=== PATIENT | male | born 1990 | race Caucasian/White ===

== ENCOUNTER 2020-01-11 15:23 | Emergency (ER) | payer OTHER, BC ==
[~2020-01-11] VITALS: Ht 175.3 cm; Wt 99.8 kg
[~2020-01-11 15:23] MED LIST: ACET500 PO; ALBIPROI INH; ALBU90OI INH; AZIT250 PO; CEPH500 PO; CLIN300 PO; CODGUAEL PO; CYCL10; CYCL10 PO; DAYQUIL; DIAZ10; DOXY100 PO; HYDACE5 PO; HYDACE5325 PO; HYDGUAL120 PO; HYDMOR2 PO; HYDR1TAB94 PO; IBUP800 PO; NAPR500 PO; NYQUIL; Norco 5-325 Ta1 EACH PO; OXYACE5T PO; PRED20 PO; PROM25 PO; PSEU120ER PO; Percocet 5-3251 EACH PO; Prednisone20 MG PO; SULTRIDS PO; SUMA25 PO; Zofran4 MG PO; Zofran8 MG PO
[2020-01-11 15:58] LABS: PCO2 Arterial 39.8 mmHg (35-45); pH Blood Arterial 7.42 (7.35-7.45)
[2020-01-11 16:18] LABS: BASOPHILS ABSOLUTE AUTO 0.02 K/mm3 (0.00-0.23); BASOPHILS PERCENT AUTO 0 % (0-2); EOSINOPHILS ABSOLUTE AUTO 0.04 K/mm3 (0.00-0.68); EOSINOPHILS PERCENT AUTO 1 % (0-6); Hematocrit 50.4 % (37.0-53.0); Hemoglobin 16.9 g/dL (13.5-17.5); IMMATURE GRAN ABSOLUTE AUTO 0.04 K/mm3 (0.00-0.10); IMMATURE GRAN PERCENT AUTO 1 % (0-1); LYMPHOCYTES ABSOLUTE AUTO 2.25 K/mm3 (0.84-5.20); LYMPHOCYTES PERCENT AUTO 28 % (21-46); MONOCYTES PERCENT AUTO 8 % (4-13); Mean Corpuscular HGB 29.8 pg (26.0-34.0); Mean Corpuscular HGB Conc 33.5 g/dL (31.5-36.5); Mean Corpuscular Volume 89 fL (80-100); Mean Platelet Volume 10.6 fL (9.1-12.4); NEUTROPHILS ABSOLUTE AUTO 5.09 K/mm3 (1.96-9.15); NEUTROPHILS PERCENT AUTO 63 % (41-73); Platelet Count 249 K/mm3 (150-400); RDW Coefficient Variation 12.4 % (11.7-14.2); RDW Standard Deviation 41.2 fL (35.1-46.3); Red Blood Cell Count 5.67 M/mm3 (4.30-5.90); White Blood Cell Count 8.04 K/mm3 (4.00-11.30)
[2020-01-11 16:38] LABS: Alanine Aminotransfer (ALT/SGP 67 U/L (12-78); Albumin, Blood 4.1 g/dL (3.4-5.0); Albumin/Globulin Ratio 1.1 (0.8-1.8); Alk Phos 62 U/L (50-136); Anion Gap 5 mmol/L (6-16); Aspartate Aminotrans (AST/SGOT 52 U/L (12-37); Bilirubin, Total 0.9 mg/dL (0.1-1.0); Blood Urea Nitrogen 18 mg/dL (8-24); Bun/Creatinine Ratio 21.5 (12.0-20.0); CO2, Blood 25 mmol/L (21-32); Calcium, Blood 8.8 mg/dL (8.5-10.1); Chloride, Blood 105 mmol/L (98-108); Creatinine, Blood 0.84 mg/dL (0.60-1.20); Globulin, Blood 3.6 g/dL (2.2-4.0); Glomerular Filtration Rate >60 (60-); Glucose, Blood 103 mg/dL (70-99); Potassium, Blood 4.1 mmol/L (3.5-5.5); Sodium, Blood 135 mmol/L (136-145); Total Protein, Blood 7.7 g/dL (6.4-8.2)
== END 2020-01-11 17:13 | disposition home or self-care (01) ==
LOC: ER 15:23
PROVIDERS: Physician Assistant
DX: T59.891A Toxic effect of other specified gases, fumes and vapors, accidental (unintentional), initial encounter (principal); Z88.0 Allergy status to penicillin; Z88.1 Allergy status to other antibiotic agents; Z87.891 Personal history of nicotine dependence
CPT/HCPCS: 36415; 36600; 80053; 82375; 82803; 85025; 99284; A9270-GY

== ENCOUNTER 2020-02-08 19:29 | Emergency (ER) | payer BC ==
[~2020-02-08] VITALS: Ht 175.3 cm; Wt 10.0 kg
== END 2020-02-08 23:55 | disposition home or self-care (01) ==
LOC: ER 19:29
DX: R10.31 Right lower quadrant pain (principal); Z88.0 Allergy status to penicillin; Z88.1 Allergy status to other antibiotic agents; Z87.891 Personal history of nicotine dependence
CPT/HCPCS: 36415; 74177; 96361; 96374-59; 96375; 99284-25; A9270; A9270-GY; J1200; J2405; J2930; J3010; J7030; Q9967

== ENCOUNTER 2021-02-05 15:39 | Emergency (ER) | payer OTHER, BC ==
[~2021-02-05] VITALS: Ht 177.8 cm; Wt 99.8 kg
[2021-02-05 16:03] LABS: BASOPHILS ABSOLUTE AUTO 0.03 K/mm3 (0.00-0.23); BASOPHILS PERCENT AUTO 0 % (0-2); EOSINOPHILS PERCENT AUTO 1 % (0-6); IMMATURE GRAN ABSOLUTE AUTO 0.04 K/mm3 (0.00-0.10); IMMATURE GRAN PERCENT AUTO 1 % (0-1); LYMPHOCYTES ABSOLUTE AUTO 3.09 K/mm3 (0.84-5.20); LYMPHOCYTES PERCENT AUTO 35 % (21-46); MONOCYTES ABSOLUTE AUTO 0.72 K/mm3 (0.16-1.47); MONOCYTES PERCENT AUTO 8 % (4-13); Mean Corpuscular HGB 30.5 pg (26.0-34.0); Mean Corpuscular HGB Conc 35.4 g/dL (31.5-36.5); Mean Corpuscular Volume 86 fL (80-100); Mean Platelet Volume 10.1 fL (9.1-12.4); NEUTROPHILS ABSOLUTE AUTO 4.88 K/mm3 (1.96-9.15); NEUTROPHILS PERCENT AUTO 55 % (41-73); Platelet Count 262 K/mm3 (150-400); RDW Coefficient Variation 12.8 % (11.7-14.2); RDW Standard Deviation 40.1 fL (35.1-46.3); Red Blood Cell Count 5.57 M/mm3 (4.30-5.90); White Blood Cell Count 8.86 K/mm3 (4.00-11.30)
[2021-02-05 16:17] LABS: Alanine Aminotransfer (ALT/SGP 62 U/L (12-78); Albumin, Blood 4.1 g/dL (3.4-5.0); Albumin/Globulin Ratio 1.1 (0.8-1.8); Alk Phos 65 U/L (50-136); Anion Gap 7 mmol/L (6-16); Aspartate Aminotrans (AST/SGOT 21 U/L (12-37); Bilirubin, Total 0.5 mg/dL (0.1-1.0); Blood Urea Nitrogen 19 mg/dL (8-24); Bun/Creatinine Ratio 18.3 (12.0-20.0); CO2, Blood 28 mmol/L (21-32); Chloride, Blood 103 mmol/L (98-108); Creatinine, Blood 1.04 mg/dL (0.60-1.20); Globulin, Blood 3.8 g/dL (2.2-4.0); Glomerular Filtration Rate >60 (60-); Glucose, Blood 112 mg/dL (70-99); Potassium, Blood 3.6 mmol/L (3.5-5.5); Sodium, Blood 138 mmol/L (136-145); Total Protein, Blood 7.9 g/dL (6.4-8.2)
[2021-02-05 16:33] LABS: Source, Urine Clean Catch
[2021-02-05 16:35] LABS: Appearance, Urine Clear (Clear); Bilirubin, Urine Neg (Neg); Blood, Urine Neg (Neg); Color, Urine Yellow (P-Yellow); Glucose Qualitative, Urine Neg (Neg); Ketones, Urine Neg (Neg); Leukocyte Esterase, Urine Neg (Neg); Nitrite, Urine Neg (Neg); Protein, Urine Neg (Neg); Specific Gravity, Urine 1.015 (1.003-1.022); Urobilinogen, Urine NORM (Normal)
== END 2021-02-05 19:23 | disposition home or self-care (01) ==
LOC: ER 15:39
PROVIDERS: Physician Assistant
DX: T67.5XXA Heat exhaustion, unspecified, initial encounter (principal); E86.0 Dehydration; Z88.0 Allergy status to penicillin; Z87.891 Personal history of nicotine dependence
CPT/HCPCS: 36415; 80053; 81003; 83690; 83735; 85025; 96374; 99284-25; A9270; J2405; J7030

== ENCOUNTER 2023-05-05 22:45 | Emergency (ER) | payer SELFPAY ==
[~2023-05-05] VITALS: Ht 175.3 cm; Wt 90.7 kg
[~2023-05-05 22:45] MED LIST changes: +LEVFLO500 PO
[2023-05-05 23:59] LABS: Source, Urine Voided
[2023-05-06 00:01] LABS: BASOPHILS ABSOLUTE AUTO 0.04 K/mm3 (0.00-0.23); BASOPHILS PERCENT AUTO 1 % (0-2); EOSINOPHILS ABSOLUTE AUTO 0.03 K/mm3 (0.00-0.68); EOSINOPHILS PERCENT AUTO 0 % (0-6); Hematocrit 47.5 % (37.0-53.0); Hemoglobin 16.6 g/dL (13.5-17.5); IMMATURE GRAN ABSOLUTE AUTO 0.01 K/mm3 (0.00-0.10); IMMATURE GRAN PERCENT AUTO 0 % (0-1); LYMPHOCYTES PERCENT AUTO 23 % (21-46); MONOCYTES ABSOLUTE AUTO 0.54 K/mm3 (0.16-1.47); MONOCYTES PERCENT AUTO 6 % (4-13); Mean Corpuscular HGB 30.2 pg (26.0-34.0); Mean Corpuscular HGB Conc 34.9 g/dL (31.5-36.5); Mean Corpuscular Volume 87 fL (80-100); Mean Platelet Volume 10.2 fL (9.1-12.4); NEUTROPHILS ABSOLUTE AUTO 5.98 K/mm3 (1.96-9.15); NEUTROPHILS PERCENT AUTO 70 % (41-73); Platelet Count 259 K/mm3 (150-400); RDW Standard Deviation 38.2 fL (35.1-46.3); Red Blood Cell Count 5.49 M/mm3 (4.30-5.90)
[2023-05-06 00:12] LABS: Bilirubin, Urine Neg (Neg); Blood, Urine Neg (Neg); Glucose Qualitative, Urine Neg (Neg); Ketones, Urine Neg (Neg); Leukocyte Esterase, Urine Neg (Neg); Nitrite, Urine Neg (Neg); Protein, Urine Neg (Neg); Urobilinogen, Urine NORM (Normal)
[2023-05-06 00:29] LABS: Appearance, Urine Clear (Clear); Color, Urine Yellow (P-Yellow)
[2023-05-06 00:42] LABS: Albumin/Globulin Ratio 1.2 (0.8-1.8); Bilirubin, Total 0.5 mg/dL (0.1-1.0); Bun/Creatinine Ratio 21.6 (12.0-20.0); C-Reactive Protein, High Sens. 0.68 mg/L (0.000-3.000); Calcium, Blood 8.7 mg/dL (8.5-10.1); Creatinine, Blood 0.92 mg/dL (0.60-1.20); Globulin, Blood 3.2 g/dL (2.2-4.0); Potassium, Blood 3.9 mmol/L (3.5-5.5); Total Protein, Blood 7.2 g/dL (6.4-8.2)
[2023-05-06] MEDS ORDERED: DOCU100 PO (01:52)
[2023-05-06 01:58] VITALS: BP 114/77
== END 2023-05-06 01:58 | disposition home or self-care (01) ==
LOC: ER 22:45
PROVIDERS: Emergency Medicine
DX: R10.31 Right lower quadrant pain (principal); Z87.891 Personal history of nicotine dependence
CPT/HCPCS: 74019; 80053; 81003; 83690; 85025; 86141; 96374; 99284; J1885

== ENCOUNTER 2023-07-24 04:24 | Emergency (ER) | payer OTHER ==
[~2023-07-24] VITALS: Ht 175.3 cm; Wt 90.7 kg
[~2023-07-24 04:24] MED LIST changes: +DOCU100 PO
[2023-07-24] MEDS ORDERED: DIAZEPAM5 M2 PO (04:38)
[2023-07-24] MEDS ORDERED: HYDROCODONE-AC1 EA19 PO (04:39)
[2023-07-24 05:45] VITALS: BP 139/88
== END 2023-07-24 05:56 | disposition home or self-care (01) ==
LOC: ER 04:24
DX: S60.052A Contusion of left little finger without damage to nail, initial encounter (principal); Z79.899 Other long term (current) drug therapy; Z88.0 Allergy status to penicillin; Z91.041 Radiographic dye allergy status; Z91.013 Allergy to seafood; W22.09XA Striking against other stationary object, initial encounter; Y93.89 Activity, other specified; Y99.0 Civilian activity done for income or pay
CPT/HCPCS: 73130; 99283-25

== ENCOUNTER 2024-03-29 09:51 | Day surgery (SDC) | payer OTHER ==
[~2024-03-29] VITALS: Ht 175.3 cm; Wt 91.9 kg
[~2024-03-29 09:51] MED LIST changes: +DIAZEPAM5 M2 PO; +HYDROCODONE-AC1 EA19 PO
[2024-03-29] MEDS ORDERED: Tranexamic Acid 100 ML IV ONE (09:57)
[2024-03-29] MEDS ORDERED: NS 50 ML IV ONE (10:07)
[2024-03-29] MEDS ORDERED: CeFAZolin Sodium 2,000 MG VIAL ONE (10:07)
[2024-03-29] MEDS ORDERED: Lactated Ringer's 1,000 ML IV ONE ×2 (10:30→14:58)
[2024-03-29] MEDS ORDERED: Ondansetron HCl 2 MG / ML 2ML Vial ONE ×2 (10:57→16:33)
[2024-03-29] MEDS ORDERED: Dexamethasone Sod Phos 10 MG/ML 1ML VIAL ONE (10:57)
[2024-03-29] MEDS ORDERED: FentaNYL Citrate 50 MCG/ML 2 ML Injection ONE ×2 (10:57→16:33)
[2024-03-29] MEDS ORDERED: Midazolam HCl 1MG / ML 2ML Vial ONE (10:57)
[2024-03-29] MEDS ORDERED: Bupivacaine 0.5% HCl 5 MG/ML 30MLVIAL ONE (10:57)
[2024-03-29] MEDS ORDERED: propofoL 80 ML IV ONE (11:06)
[2024-03-29] MEDS ORDERED: Rocuronium Bromide 10 MG/ML 5ML Injection IV ONE (11:07)
[2024-03-29] MEDS ORDERED: Sugammadex Sodium 200 MG/2ML SDV (100 MG/ML) ONE (12:54)
[2024-03-29] MEDS ORDERED: EPINEPhrine HCl 1 MG/ML 1ML Amp XX ONE (13:09)
[2024-03-29] MEDS ORDERED: Lidocaine 2%-Epineph 1:100000 20 ML MDV INJ ONE (13:09)
--- NOTE | 2024-03-29 13:16 | NUR ---
03/29/24 1316 Precious Cullen 1 MG EPI ADDED TO THE FIRST 3 BAGS OF LR FOR IRRIGATION AT [facility]. TXA STARTED AT [address] STRAUSS.
[2024-03-29] MEDS ORDERED: propofoL 50 ML IV ONE ×2 (13:23→14:55)
[2024-03-29] MEDS ORDERED: HYDROmorphone HCl/Pf 1MG SYR ONE (16:38)
[2024-03-29 17:06] VITALS: BP 131/84
[2024-03-29] MEDS ORDERED: OxyCODONE HCL 5 MG TAB ONE (17:22)
--- NOTE | 2024-03-29 18:00 | NUR ---
03/29/24 Eugene Starkey PT REPORTED TOLERABLE 3/10 PAIN AND DENIED NAUSEA AT TIME OF D/C. FLACC 08/05. HE APPEARED ALERT AND RELAXED AND EXPRESSED READINESS TO RETURN HOME. PT VOIDED LARGE AMOUNT PRIOR TO D/C.
== END 2024-03-29 17:55 | disposition home or self-care (01) ==
LOC: ORSCSDS 09:51
PROVIDERS: Orthopaedic Surgery Sports Medicine
PROC: 0RQJ4ZZ Repair Right Shoulder Joint, Percutaneous Endoscopic Approach (ICD-10-PCS; principal; 2024-03-29 11:15)
PROC: 0LQ14ZZ Repair Right Shoulder Tendon, Percutaneous Endoscopic Approach (ICD-10-PCS; principal; 2024-03-29 11:15)
DX: S43.431A Superior glenoid labrum lesion of right shoulder, initial encounter (principal); M24.011 Loose body in right shoulder; Y93.59 Activity, other involving other sports and athletics played individually; M65.811 Other synovitis and tenosynovitis, right shoulder
CPT/HCPCS: A9270; C1713; J0171; J0690; J1100; J1170; J2250; J2405; J2704; J3010; J7120